=== PATIENT | male | born 1960 | race Caucasian/White ===

== ENCOUNTER 2019-07-20 07:27 | Outpatient (CLI) | payer OTHER, SELFPAY ==
--- NOTE | ~2019-07-20 | US_ITS ---
US right upper quadrant DATE: 07/20/2019 08:07 INDICATION: Abdominal pain TECHNIQUE: Real-time imaging of liver, pancreas, gallbladder areas COMPARISON: 01/29/2018 CT abdomen pelvis FINDINGS: No hepatic or pancreatic space-occupying mass lesion is evident. Fatty infiltration of the liver is suggested. Normal hepatic portal venous flow direction. No gallstones or gallbladder wall thickening or abnormal pericholecystic fluid collection. Negative s onographic Mart's sign. The common bile duct measures 5.2 mm diameter, within normal range. IMPRESSION: Hepatic steatosis is suggested Negative gallbladder Reviewed, dictated and finalized at [facility]. Reviewed, dictated and finalized at location A.
== END 2019-07-20 07:28 | disposition home or self-care (01) ==
PROVIDERS: PCP Emergency Medicine; Visit Provider Emergency Medicine
DX: R10.9 Unspecified abdominal pain (principal)
CPT/HCPCS: 76705

== ENCOUNTER 2019-10-09 08:01 | Outpatient (CLI) | payer OTHER, SELFPAY ==
--- NOTE | ~2019-10-09 | NM_ITS ---
EXAMINATION: NM hepatobiliary w pharm DATE: 10/09/2019 11:49 INDICATION: Abdominal pain COMPARISON: None. TECHNIQUE: 4.7 mCi Tc-99m mebrofenin (Choletec) was administered intravenously. Scintigraphic images of the abdomen were obtained for one hour. 3 mcg sincalide (Kinevac) was administered by slow intrav enous infusion, and imaging was continued for 30 minutes. Gallbladder ejection fraction was calculate d by the technologist. FINDINGS: There is normal clearance of radiotracer from the blood pool. There is homogeneous tracer uptake by t he liver. Activity progresses to the gallbladder and bowel. The gallbladder ejection fraction (GBEF) is 74% (normal 10-90%, but most patient with gallbladder dysfunction have GBEF < 35% which does over lap with the normal range). IMPRESSION: 1. Normal hepatobiliary scan. Reviewed, dictated and finalized at location A.
== END 2019-10-09 08:02 | disposition home or self-care (01) ==
PROVIDERS: PCP Emergency Medicine; Visit Provider Emergency Medicine
DX: R10.9 Unspecified abdominal pain (principal)
CPT/HCPCS: 78227; A9537; J2805

== ENCOUNTER 2020-02-25 12:42 | Outpatient (CLI) | payer OTHER, SELFPAY ==
--- NOTE | ~2020-02-25 | CT_ITS ---
EXAMINATION: CT lung screening DATE: 02/25/2020 13:04 INDICATION: Personal history of nicotine dependence, current smoker with 30 pack year history TECHNIQUE: Computed tomography (CT) of the chest was performed without intravenous contrast. The dose -length product (DLP) was 187.02 mGy-cm. Automated exposure control and iterative reconstruction tech Post[employer] were employed. COMPARISON: 12/06/2018 FINDINGS: There is mild emphysema. Calcified pulmonary nodules and calcified left hilar lymph nodes a re consistent with old granulomatous disease. No suspicious pulmonary nodules are identified. There i s no pleural effusion or pneumothorax. No pathologically enlarged thoracic lymph nodes are identified . The heart size is normal. Mild bilateral gynecomastia is noted. Punctate calcifications in otherwis e normal appearing liver and spleen likely represent healed granulomatous disease. Nonobstructing sto sonia of the left kidney upper pole measure up to 9 mm. There is moderate thoracic spondylosis. IMPRESSION: 1. Lung-RADS category 2: Benign appearance or behavior. Continue annual screening with noncontrast lo w-dose chest CT in 12 months. Reviewed, dictated and finalized at location A. LE SEWER MACHINE IMPRESSION: 1. Lung-RADS category 2: Benign appearance or behavior. Continue annual screeni ng with noncontrast low-dose chest CT in 12 months.
== END 2020-02-25 12:43 | disposition home or self-care (01) ==
LOC: ANHIMG 12:49
PROVIDERS: PCP Emergency Medicine; Visit Provider Emergency Medicine
DX: Z12.2 Encounter for screening for malignant neoplasm of respiratory organs (principal); Z87.891 Personal history of nicotine dependence
CPT/HCPCS: G0297

== ENCOUNTER → 2020-06-09 10:17 | Outpatient (CLI) | payer OTHER, SELFPAY ==
--- NOTE | ~2020-06-09 | XR_ITS ---
EXAMINATION: XR lumbar spine 2-3V, XR sacroiliac joints min 3V EXAM DATE: 06/09/2020 10:40 INDICATION: Ankylosing spondylitis in spine . Middle Lower Back Pain Radiates To Right Side Worsenin g For 1 Week. Hx Of Arthritis And Crohn's Disease. Fx's Of Lower Vertebrae And Herniated Disc's. No S urg. No Known Injury. TECHNIQUE: Lumber spine frontal, lateral, lateral L5-S1 projections for interpretation. Frontal, leo ateral oblique projections of the sacroiliac joints. Comparison is made to prior examination from 05/04 (lumbar spine. FINDINGS: Mild lumbar levoscoliosis. Mild to moderate disc disease L1-L4, mild at L4-5 and L5-S1. Sma ll to moderate size endplate osteophytes. Mild to moderate lumbar facet arthropathy. Sacrum, sacroili ac joints, sacral arcuate lines are intact. Sacroiliac joints are intact, fused. Paraspinal soft tiss ue is unremarkable. IMPRESSION: 1. Mild to moderate lumbar spondylosis. 2. Unremarkable sacroiliac joints. Reviewed, dictated and finalized at location A. IMPRESSION: 1. Mild to moderate lumbar spondylosis. 2. Unremarkable sacroiliac joints.
== END ==
PROVIDERS: PCP Emergency Medicine; Visit Provider Emergency Medicine
DX: M45.6 Ankylosing spondylitis lumbar region (principal); M47.817 Spondylosis without myelopathy or radiculopathy, lumbosacral region
CPT/HCPCS: 72100; 72202

== ENCOUNTER 2020-08-31 00:16 | Emergency (ER) | payer OTHER, SELFPAY ==
--- NOTE | ~2020-08-31 | XR_ITS ---
EXAMINATION: XR abdomen/kub 1V INDICATION: Left flank pain TECHNIQUE: Supine views of the abdomen were obtained on 2 radiographs. COMPARISON: CT from today FINDINGS: There are stones measuring 3 mm and 2 mm projecting in the proximal left ureter between the left L3 and L4 transverse processes. A 6 mm stone is noted in the left kidney upper pole. Punctate s tones of the right kidney measure up to 2 mm. The bowel gas pattern is normal. There is mild osteoart hritis of the hips. IMPRESSION: 1. Two stones of the left proximal ureter. 2. Bilateral nephrolithiasis. Reviewed, dictated and finalized at location A.
--- NOTE | ~2020-08-31 | CT_ITS ---
EXAMINATION: CT abdomen pelvis wo con DATE: 08/31/2020 01:12 INDICATION: Left flank pain TECHNIQUE: Computed tomography (CT) of the abdomen and pelvis was performed without intravenous contr ast. The dose-length product (DLP) was 324.12 mGy-cm. Automated exposure control and iterative recons truction technique were employed. COMPARISON: 01/29/2018 FINDINGS: Minimal dependent atelectasis is present in the lung bases. The heart size is normal. Punct ate calcifications in otherwise normal appearing liver and spleen likely represent healed granulomato us disease. The pancreas, gallbladder, and adrenal glands are normal. Stones measuring 5 mm and 3 mm are present in the proximal left ureter which cause mild hydroureteronephrosis. There is a 6 mm nonob structing stone of the left kidney upper pole. Punctate stones are noted in the right kidney upper po le and left kidney lower pole. There is a 2 mm nonobstructing stone of the right mid kidney. Cysts of the kidneys measure up to 2 cm on the left. No pathologically enlarged abdominal or pelvic lymph nod es are identified. There is no free intraperitoneal gas or evidence of bowel obstruction. The appendi x is normal. Colonic diverticulosis is present without evidence of diverticulitis. Bilateral sacroili itis is again noted. There is moderate lumbar spondylosis. IMPRESSION: 1. Two stones of the proximal left ureter causing mild hydroureteronephrosis. 2. Bilateral nonobstructing nephrolithiasis. Reviewed, dictated and finalized at location A.
[2020-08-31 00:20] VITALS: BP 173/103; PULSE 70; RESP 16; TEMP 36.5; O2SAT 100
[2020-08-31] MEDS: KETOROLAC 30 MG/ML VIAL (*BKC) IV PUSH (00:45)
[2020-08-31] MEDS: SODIUM CHLORIDE 0.9% IV 1,000 ML 999 ML IV CONT (00:45)
[2020-08-31] MEDS: ONDANSETRON INJ 4 MG/2 ML VIAL IV PUSH (00:46)
--- NOTE | 2020-08-31 00:54 | PC.NURSE ---
Pt unable to void at this time. Refusing straight catheter at this time. Urinal at bedside.
[2020-08-31 01:01] VITALS: BP 147/91
--- NOTE | 2020-08-31 01:01 | PC.NURSE ---
Pt to imaging at this time.
[2020-08-31 01:44] LABS: Add Urine Microscopic? YES; Appearance Urine Cloudy (Clear); Bilirubin Urine Negative (Negative); Blood Urine 3+ (Negative); Calcium Oxalate Crystals Urine Many /hpf; Color Urine Red (Yellow); Glucose Urine UA Negative (Negative); Ketones Urine Negative (Negative); Leukocyte Esterase Ur Negative LEU/UL (Negative); Mucus Urine Heavy /lpf; Nitrate Urine Negative (Negative); Protein Urine 2+ mg/dL (Negative); RBC Urine >75 /hpf (0-2); Specific Grav Ur 1.009 (1.001-1.035); Urobilinogen Urine Negative mg/dL (<2.0); WBC Urine >75 /hpf
--- NOTE | 2020-08-31 01:59 | ED.ABDPAIN ---
HPI - Abdominal Pain General Chief Complaint: Urogenital-Male Stated Complaint: Left flank pain, hematuria Time Seen by Provider: 08/31/20 00:19 History of Present Illness HPI narrative: Patient is a 60-year-old male who presents ER with sudden onset left-sided abdominal pain. Associated with hematuria and urinary frequency. Has history of kidney stones. Symptoms began around 5 PM. He has sweats as well as nausea and vomiting. No alleviating factors. Related Data Home Medications Medication Instructions Recorded Confirmed alprazolam 0.5 mg PO DAILY 12/17/18 04/21/20 bupropion HCl 150 mg PO QAM 12/17/18 04/21/20 escitalopram oxalate 20 mg PO DAILY 12/17/18 04/21/20 hydrocodone-acetaminophen 1 tablet PO Q4-6H PRN 12/17/18 04/21/20 pregabalin 75 mg PO BID 12/17/18 04/21/20 amlodipine 10 mg PO DAILY 12/24/19 04/21/20 pantoprazole 20 mg tablet,delayed 20 mg PO QAM 02/18/20 04/21/20 release Allergies Allergy/AdvReac Type Severity Reaction Status Date / Time Sulfa (Sulfonamide Allergy Unknown Rash Verified 04/21/20 11:54 Antibiotics) Review of Systems Review of Systems: All systems reviewed & are unremarkable except as noted in HPI and below Constitutional: Constitutional: Denies chills, Denies fever(s) and Denies weakness Gastrointestinal: Gastrointestinal: Reports abdominal pain, Denies diarrhea, Reports nausea and Reports vomiting Genitourinary: Genitourinary: Reports hematuria, Denies dysuria and Reports urinary frequency Musculoskeletal: Musculoskeletal: Denies back pain and Denies muscle cramps PMF Past Medical History Medical History (Updated 08/31/20 @ 02:53 by Yonas Ramey MD) Crohn's disease Emphysema lung GERD (gastroesophageal reflux disease) Kidney stones Stomach ulcer Surgical History Surgical History H/O foot surgery H/O thumb surgery History of ankle surgery History of colonoscopy Family History Family History Sibling Cerebrovascular accident Family history of malignant neoplasm of breast Mother Family history of malignant neoplasm Father Carcinoma of colon Social History Social History Smoking status: Heavy tobacco smoker Alcohol intake: never Exam Narrative: Exam Narrative: GENERAL: Uncomfortable-appearing, well-nourished, and in mild distress. HEAD: Normocephalic, atraumatic. ENT: Mucous membranes moist. CHEST: Clear to auscultation. No respiratory distress. HEART: Regular rate and rhythm. Normal peripheral pulses. ABDOMEN: Soft, nontender, nondistended. EXTREMITIES: Normal range of motion. No edema. SKIN: Warm, dry, no rash. NEURO: Alert and oriented x3. PSYCH: Normal mood and affect. Course Course Emergency Course: Patient informed results. Discussed case with urologist on-call Dr. Allen. Recommends close follow-up with symptomatic treatment at home as well as ciprofloxacin given white blood cells in the urine. Make sure urinalysis is being cultured. Patient no longer takes methotrexate so he is not immunocompromise. Vital Signs Vital signs: Vital Signs Temperature 97.7 F 08/31/20 00:20 Pulse Rate 70 08/31/20 00:20 Respiratory Rate 16 08/31/20 00:20 Blood Pressure 173/103 H 08/31/20 00:20 Pulse Oximetry 100 08/31/20 00:20 Temperature 97.7 F 08/31/20 00:20 Pulse Rate 62 08/31/20 02:31 Respiratory Rate 23 H 08/31/20 02:31 Blood Pressure 125/74 08/31/20 02:31 Pulse Oximetry 95 08/31/20 02:31 MDM - Abdominal Pain Lab Data Result diagrams: 08/31/20 00:51 08/31/20 00:51 Labs: Lab Results 08/31/20 08/31/20 08/31/20 Range/Units 00:51 00:51 01:28 WBC 9.6 (4.5-10.0) K/mm3 RBC 5.50 (4.6-6.20) M/mm3 Hgb 15.7 (14.0-18.0) g/dL Hct 47.8 (42.0-52.0) % MCV 86.9 (80-100) fl MCH 28.5 (26-34)
[2020-08-31 02:23] VITALS: BP 125/69; PULSE 61; RESP 17; O2SAT 97
[2020-08-31 02:31] VITALS: BP 125/74; PULSE 62; RESP 23; O2SAT 95
[2020-08-31 02:33] LABS: Basophils Percent Auto 0.3 % (0.2-1.2); Eosinophils Absolute Auto 0.2 K/mm3 (0-0.3); Eosinophils Percent Auto 1.6 % (0-4.4); Hematocrit 47.8 % (42.0-52.0); Hemoglobin 15.7 g/dL (14.0-18.0); Immature Granulocyte Absolute 0.04 K/mm3 (0.00-0.031); Immature Granulocyte Percent A 0.4 % (0-0.5); Lymphocytes Percent Auto 28.2 % (18.3-44.2); Mean Corpuscular HGB Conc 32.8 g/dl (32-36); Mean Corpuscular Hemoglobin 28.5 pg (26-34); Mean Corpuscular Volume 86.9 fl (80-100); Mean Platelet Volume 9.6 fl (7.4-10.4); Monocytes Absolute Auto 0.9 K/mm3 (0.1-0.6); Monocytes Percent Auto 8.9 % (2.6-8.5); Neutrophils Absolute Auto 5.8 K/mm3 (1.3-6.7); Neutrophils Percent Auto 60.6 % (45.5-73.1); Platelet Count Result 209 k/mm3 (150-375); Red Cell Distribution Width 14.5 % (11.5-14.5); White Blood Count 9.6 K/mm3 (4.5-10.0)
[2020-08-31 02:38] LABS: Anion Gap 8 mmol/L (8-16); Blood Urea Nitrogen 17 mg/dL (9-20); Calcium 9.8 mg/dL (8.4-10.2); Carbon Dioxide 26 mmol/L (22-30); Chloride 108 mmol/L (98-107); Estimated CRCL calculation 57 ml/min; Estimated Glomerular Filt Rate 52; Glucose 99 mg/dL (75-110); Sodium 142 mmol/L (137-145)
[2020-08-31] MEDS: CIPROFLOXACIN 500 MG TAB PO (03:05)
[2020-08-31] MEDS: TAMSULOSIN HCL 0.4 MG CAPSULE PO (03:05)
[2020-08-31 03:11] VITALS: BP 121/74; PULSE 67; RESP 13; TEMP 36.6; O2SAT 99
== END 2020-08-31 03:14 | disposition home or self-care (01) ==
PROVIDERS: Emergency Provider Emergency Medicine; PCP Emergency Medicine
DX: N20.1 Calculus of ureter (principal); R31.9 Hematuria, unspecified; K50.90 Crohn's disease, unspecified, without complications; J43.9 Emphysema, unspecified; F17.200 Nicotine dependence, unspecified, uncomplicated
CPT/HCPCS: 36415; 74018; 74176; 80048; 81001; 85025; 87086; 87088; 96361; 96374; 96375; 99284; A9270; J1885; J2405; J7030

== ENCOUNTER 2020-09-10 14:57 | Outpatient (CLI) | payer OTHER, SELFPAY ==
--- NOTE | ~2020-09-10 | XR_ITS ---
EXAMINATION: XR abdomen/kub 1V DATE: 09/10/2020 15:13 INDICATION: Bilateral ureteral stone. Left flank pain. TECHNIQUE: A supine view of the abdomen on 2 radiographs was obtained. COMPARISON: Abdomen radiographs 08/31/2020, CT abdomen and pelvis 08/31/2020 FINDINGS: There are no dilated loops of bowel. The kidneys are obscured by bowel. There are two 3 mm stones in distal left ureter. There is a 2 mm vascular calcification in left pelvis. IMPRESSION: 1. Two 3 mm stones in distal left ureter. Reviewed, dictated and finalized at location A.
== END 2020-09-10 14:58 | disposition home or self-care (01) ==
LOC: ANHIMG 15:02
PROVIDERS: PCP Emergency Medicine; Visit Provider Urology
DX: N20.1 Calculus of ureter (principal)
CPT/HCPCS: 74018

== ENCOUNTER 2020-09-17 01:16 | Day surgery (SDC) | payer OTHER, SELFPAY ==
--- NOTE | 2020-09-14 07:55 | PM.HPGS ---
History of Present Illness History of Present Illness Consent: Risks, benefits, and alternatives have been discussed and questions answered. Patient agrees to proceed with procedure. Chief complaint: Left ureteral stone Narrative: Venu Hobson is a 60 year old male with a history of urolithiasis in the past. He recently presented with hematuria and flank pain. Imaging reveals 2 stones in the distal left ureter. After failing to pass the spontaneously he now presents for cystoscopy with ureteroscopy and stone extraction, is aware of possible need for a stent placement. He is aware of risk of ureteral injury and recurrent stone. Review of Systems Cardiovascular: Cardiovascular: Denies chest pain, Denies lightheadedness, Denies palpitations and Denies dyspnea Respiratory: Respiratory: Denies dyspnea Gastrointestinal: Gastrointestinal: Denies diarrhea, Denies nausea and Denies vomiting Genitourinary: Genitourinary: Denies hematuria and Denies dysuria Endocrine: Endocrine: Denies palpitations PMF Past Medical History Medical History (Updated 09/14/20 @ 07:57 by Danielito Mary MD) Crohn's disease Emphysema lung GERD (gastroesophageal reflux disease) Kidney stones Stomach ulcer Surgical History Surgical History H/O foot surgery H/O thumb surgery History of ankle surgery History of colonoscopy Family History Family History Sibling Cerebrovascular accident Family history of malignant neoplasm of breast Mother Family history of malignant neoplasm Father Carcinoma of colon Social History Social History Smoking status: Heavy tobacco smoker Alcohol intake: never Meds Home Medications and Allergies Home Medications Medication Instructions Recorded Confirmed Type alprazolam 0.5 mg PO DAILY 12/17/18 04/21/20 History bupropion HCl 150 mg PO QAM 12/17/18 04/21/20 History escitalopram oxalate 20 mg PO DAILY 12/17/18 04/21/20 History hydrocodone-acetaminophen 1 tablet PO Q4-6H PRN 12/17/18 04/21/20 History pregabalin 75 mg PO BID 12/17/18 04/21/20 History amlodipine 10 mg PO DAILY 12/24/19 04/21/20 History folic acid 1 mg tablet 1 mg PO DAILY #30 tablet 02/18/20 04/21/20 Rx methotrexate sodium 2.5 mg tablet 12.5 mg PO WEEKLY #20 tablet 02/18/20 04/21/20 Rx pantoprazole 20 mg tablet,delayed 20 mg PO QAM 02/18/20 04/21/20 History release ciprofloxacin HCl 500 mg PO Q12H #14 tablet 08/31/20 Rx hydrocodone-acetaminophen 1 tablet PO Q6H PRN #20 tablet 08/31/20 Rx promethazine 25 mg PO Q6H PRN #10 tablet 08/31/20 Rx tamsulosin 0.4 mg PO DAILY #7 cap 08/31/20 Rx Allergies Allergy/AdvReac Type Severity Reaction Status Date / Time Sulfa (Sulfonamide Allergy Unknown Rash Verified 04/21/20 11:54 Antibiotics) Exam Const: General: no acute distress Resp: Effort & Inspection: normal respiratory effort GI: Inspection: non-distended GI Palp: No abdominal tenderness and No Guarding due to palpation present (GI) Auscultation: normal bowel sounds Assessment and Plan Assessment and plan (1) Left ureteral calculus: Code(s): N20.1 - Calculus of ureter Status: Acute Assessment and Plan: cystoscopy, left ureteroscopy with stone extraction and possible stent placement
[2020-09-15 11:57] VITALS: BMI 30.9
--- NOTE | ~2020-09-17 | XR_ITS ---
EXAMINATION: XR abdomen/kub 1V INDICATION: Left flank pain TECHNIQUE: Supine views of the abdomen were obtained on 2 radiographs. COMPARISON: 09/10/2020 FINDINGS: The previously described 3 mm stones of the distal left ureter are no longer identified con sistent with interval treatment or passage. Vascular calcification is noted in the left pelvis. There is a 6 mm stone of the left kidney upper pole. A 3 mm stone is noted in the right kidney. The bowel gas pattern is normal. The visualized lung bases are clear. There is moderate bilateral hip osteoarth ritis. IMPRESSION: 1. Previously described left distal ureteral stones no longer identified. 2. Bilateral nephrolithiasis. Reviewed, dictated and finalized at location B.
--- NOTE | 2020-09-17 06:28 | WPDHPUPDATE1 ---
History and Physical Update Update Date/Time: 09/17/20 06:28 History and Physical has been reviewed, including an updated exam of the patient. There are NO changes in the patient's condition. Risks, benefits, and alternatives have been discussed and questions answered. Patient agrees to proceed with procedure.
[2020-09-17 11:35] VITALS: BP 125/69; PULSE 51; RESP 20; TEMP 36.8; O2SAT 99
== END 2020-09-17 12:03 | disposition home or self-care (01) ==
PROVIDERS: PCP Emergency Medicine; Visit Provider Urology
PROC: (CPT 52352; principal; 2020-09-17 12:45)
DX: N20.1 Calculus of ureter (principal); Z53.8 Procedure and treatment not carried out for other reasons
CPT/HCPCS: 74018; 99212; A9270; G0463

== ENCOUNTER → 2020-10-08 08:22 | Outpatient (CLI) | payer OTHER, SELFPAY ==
--- NOTE | ~2020-10-08 | XR_ITS ---
EXAMINATION:XR cervical spine min 6V DATE: 10/08/2020 09:01 INDICATION: Neck pain TECHNIQUE: AP, lateral in neutral, flexion, extension, bilateral oblique, lateral swimmers and odonto id views of the cervical spine are provided. COMPARISON: None FINDINGS: Alignment is normal. There is no laxity with flexion or extension. The odontoid is intact. No fracture is identified. The vertebral body heights are maintained. There is mild loss of intervert ebral disc space height at C4-5, C5-6, and C6-7. Small degenerative osteophytes project from the ante rior endplates of multiple vertebral bodies. There is mild neuroforaminal stenosis on the left at C7- T1 and on the right and C5-6 and C7-T1. There is moderate multilevel facet and uncovertebral joint os teoarthritis. Prevertebral soft tissues are normal. IMPRESSION: 1. Mild to moderate cervical spondylosis without acute findings. Reviewed, dictated and finalized at location B.
--- NOTE | ~2020-10-08 | XR_ITS ---
EXAMINATION: XR thoracic spine 2V DATE: 10/08/2020 09:01 INDICATION: Thoracic back pain TECHNIQUE: AP, lateral and lateral swimmer's views of the thoracic spine were obtained. COMPARISON: None. FINDINGS: There is no fracture, dislocation, or subluxation. The vertebral body heights are normal. T here is mild loss of intervertebral disc space height in the mid and upper thoracic spine. Scattered calcified nodules of the lungs are consistent with old granulomatous disease. IMPRESSION: 1. Mild thoracic spondylosis without acute findings. Reviewed, dictated and finalized at location B.
--- NOTE | ~2020-10-08 | US_ITS ---
EXAMINATION: US renal BI DATE: 10/08/2020 08:39 INDICATION: Hydronephrosis, history of kidney stones TECHNIQUE: Multiple grayscale and Doppler ultrasound images of the kidneys were obtained. COMPARISON: CT, 08/31/2020 FINDINGS: The right kidney measures 11.1 x 6.0 x 5.7 cm. There is a 1.7 cm cyst in the upper pole of the right kidney. The left kidney measures 12.1 x 5.7 x 5.3 cm and contains cysts measuring up to 3.2 cm. The kidneys demonstrate normal parenchymal echogenicity. Known bilateral nephrolithiasis is not demonstrated. There is no hydronephrosis. The bladder is normal. IMPRESSION: 1. Normal kidneys without hydronephrosis. Reviewed, dictated and finalized at location B.
== END ==
PROVIDERS: PCP Emergency Medicine; Visit Provider Emergency Medicine
DX: N13.30 Unspecified hydronephrosis (principal); M47.894 Other spondylosis, thoracic region; M47.892 Other spondylosis, cervical region
CPT/HCPCS: 72052; 72070; 76775

== ENCOUNTER 2020-12-25 22:53 | Emergency (ER) | payer OTHER, SELFPAY ==
--- NOTE | ~2020-12-25 | CT_ITS ---
EXAMINATION: CT abdomen pelvis wo con DATE: 12/25/2020 23:42 INDICATION: Kidney stones TECHNIQUE: Computed tomography (CT) of the abdomen and pelvis was performed without intravenous contr ast. The dose-length product was 336.34 mGy-cm. Automated exposure control and iterative reconstructi on technique were employed. COMPARISON: CT dated 08/31/2020 FINDINGS: Lung bases are unremarkable. Heart size is normal. No significant pleural or pericardial ef fusion. No significant vascular abnormality. No lymphadenopathy. There are calcified granulomas of th e liver and spleen. The pancreas and adrenal glands are unremarkable. There are multiple bilateral re nal stones. No left ureteral stones or hydronephrosis. There is a proximal right ureteral stone measu ring 3 mm with mild hydronephrosis and perinephric edema. Colonic diverticulosis without evidence for acute diverticulitis. Nonobstructive bowel pattern. Gallbladder is present. No free air or free flui d. No abnormal pelvic masses or fluid collections. No evidence for hernia. Mild lumbar spondylosis. T here are degenerative changes of the sacroiliac joints and hips. IMPRESSION: 1. Proximal right ureteral stone measuring 3 mm at the L3-4 level with mild hydronephrosis. 2: Nonobstructing bilateral nephrolithiasis. Reviewed, dictated and finalized at location A. IMPRESSION: 1. Proximal right ureteral stone measuring 3 mm at the L3-4 level with mild hyd ronephrosis. 2: Nonobstructing bilateral nephrolithiasis.
[2020-12-25 22:56] VITALS: BP 167/98; PULSE 71; RESP 17; TEMP 36.2; O2SAT 100
--- NOTE | 2020-12-25 23:35 | ED.ABDPAIN ---
HPI - Abdominal Pain General Chief Complaint: Abdominal Pain <Joe Herrera MD - Last Filed: 12/26/20 12:38> Stated Complaint: R abdominal pain <Joe Herrera MD - Last Filed: 12/26/20 12:38> Time Seen by Provider: 12/25/20 23:09 <Joe Herrera MD - Last Filed: 12/26/20 12:38> Source: patient <Joe Herrera MD - Last Filed: 12/26/20 12:38> Mode of arrival: ambulatory <Joe Herrera MD - Last Filed: 12/26/20 12:38> Limitations: no limitations <Joe Herrera MD - Last Filed: 12/26/20 12:38> History of Present Illness HPI narrative: 60-year-old male History of kidney stones Here for flank pain Patient notes he has been having some right-sided back pain for several days but at first just thought it was his SI joint, which is scheduled for an injection, flaring up However the pain worsened yesterday and was associated with gross hematuria has now started radiating into the lower abdomen on the right side Nothing is worsened his pain, he takes Solano periodically for his back and that has not helped either He has a follow-up appointment already with Dr. Tyra kunz on Monday <Joe Herrera MD - Last Filed: 12/26/20 12:38> Related Data Home Medications: Home Medications Medication Instructions Recorded Confirmed alprazolam 0.5 mg PO DAILY 12/17/18 09/15/20 bupropion HCl 150 mg PO QAM 12/17/18 09/15/20 escitalopram oxalate 20 mg PO DAILY 12/17/18 09/15/20 hydrocodone-acetaminophen 1 tablet PO Q4-6H PRN 12/17/18 09/15/20 amlodipine 10 mg PO DAILY 12/24/19 09/15/20 pantoprazole 20 mg tablet,delayed 20 mg PO QAM 02/18/20 09/15/20 release <Joe Herrera MD - Last Filed: 12/26/20 12:38> Allergies/Adverse Reactions: Allergies Allergy/AdvReac Type Severity Reaction Status Date / Time Sulfa (Sulfonamide Allergy Unknown Rash Verified 04/21/20 11:54 Antibiotics) <Joe Herrera MD - Last Filed: 12/26/20 12:38> Review of Systems Review of Systems: All systems reviewed & are unremarkable except as noted in HPI and below <Joe Herrera MD - Last Filed: 12/26/20 12:38> Constitutional: Constitutional: Reports no additional constitutional complaints, Denies chills, Denies fever(s) and Denies headache(s) <Joe Herrera MD - Last Filed: 12/26/20 12:38> Eyes: Eyes: Reports no additional eye complaints and Denies change in vision <Joe Herrera MD - Last Filed: 12/26/20 12:38> ENT: Denies headache(s) and Denies sore throat <Joe Herrera MD - Last Filed: 12/26/20 12:38> Cardiovascular: Cardiovascular: Denies chest pain and Denies dyspnea <Joe Herrera MD - Last Filed: 12/26/20 12:38> Respiratory: Respiratory: Denies cough and Denies dyspnea <Joe Herrera MD - Last Filed: 12/26/20 12:38> Gastrointestinal: Gastrointestinal: Denies abdominal pain, Denies diarrhea, Reports nausea and Reports vomiting <Joe Herrera MD - Last Filed: 12/26/20 12:38> Genitourinary: Genitourinary: Reports as per HPI, Reports hematuria, Denies dysuria and Reports urinary frequency <Joe Herrera MD - Last Filed: 12/26/20 12:38> Musculoskeletal: Musculoskeletal: Reports back pain, Denies deformity, Denies arthralgias, Denies joint swelling and Denies numbness <Joe Herrera MD - Last Filed: 12/26/20 12:38> Integumentary/Breasts: Skin/Breast: Denies rash and Denies wounds <Joe Herrera MD - Last Filed: 12/26/20 12:38> Neurologic: Denies headache(s), Denies focal weakness and Denies numbness <Joe Herrera MD - Last Filed: 12/26/20 12:38> Psychiatric: Psychiatric: Reports no additional psychiatric complaints <Joe Herrera MD - Last Filed: 12/26/20 12:38> Endocrine: Endocrine: Reports no additional endocrine complaints <Joe Herrera MD - Last Filed: 12/26/20 12:38> Hematologic/Lymphatic: Hematologic/Lymphatic: Reports no additional hematologic/lymphatic complaints <Joe Herrera MD - Last Filed: 12/26/20 12:38> Allergic/Immunologic: Allergic/Im
[2020-12-26] MEDS: PROCHLORPERAZINE EDISYLATE 10 MG/2 ML VIAL IV PUSH (00:08)
[2020-12-26] MEDS: KETOROLAC 30 MG/ML VIAL (*BKC) IV PUSH (00:10)
[2020-12-26 00:13] VITALS: BP 145/87; PULSE 57; RESP 18; O2SAT 96
[2020-12-26] MEDS: TAMSULOSIN HCL 0.4 MG CAPSULE PO (00:13)
[2020-12-26 00:17] LABS: Add Urine Microscopic? YES; Appearance Urine Cloudy (Clear); Bilirubin Urine Negative (Negative); Blood Urine 3+ (Negative); Color Urine Yellow (Yellow); Glucose Urine UA Negative (Negative); Ketones Urine Negative (Negative); Leukocyte Esterase Ur Negative LEU/UL (Negative); Mucus Urine Rare /lpf; Nitrate Urine Negative (Negative); Protein Urine 1+ mg/dL (Negative); RBC Urine >75 /hpf (0-2); Specific Grav Ur 1.018 (1.001-1.035); Squamous Epithelial Cell Urine Rare /hpf (Few); Urobilinogen Urine Negative mg/dL (<2.0)
[2020-12-26 00:46] LABS: Basophils Percent Auto 0.4 % (0.2-1.2); Eosinophils Absolute Auto 0.1 K/mm3 (0-0.3); Eosinophils Percent Auto 1.3 % (0-4.4); Hematocrit 44.8 % (42.0-52.0); Hemoglobin 14.6 g/dL (14.0-18.0); Immature Granulocyte Absolute 0.04 K/mm3 (0.00-0.031); Immature Granulocyte Percent A 0.4 % (0-0.5); Lymphocytes Absolute Auto 1.28 K/mm3 (0.9-3.2); Lymphocytes Percent Auto 12.5 % (18.3-44.2); Mean Corpuscular HGB Conc 32.6 g/dl (32-36); Mean Corpuscular Hemoglobin 28.9 pg (26-34); Mean Corpuscular Volume 88.5 fl (80-100); Mean Platelet Volume 9.3 fl (7.4-10.4); Monocytes Absolute Auto 0.8 K/mm3 (0.1-0.6); Monocytes Percent Auto 7.5 % (2.6-8.5); Neutrophils Percent Auto 77.9 % (45.5-73.1); Platelet Count Result 167 k/mm3 (150-375); Red Blood Count 5.06 M/mm3 (4.6-6.20); Red Cell Distribution Width 14.2 % (11.5-14.5); White Blood Count 10.3 K/mm3 (4.5-10.0)
[2020-12-26 00:54] LABS: Anion Gap 7 mmol/L (8-16); Blood Urea Nitrogen 17 mg/dL (9-20); Calcium 9.9 mg/dL (8.4-10.2); Carbon Dioxide 27 mmol/L (22-30); Chloride 106 mmol/L (98-107); Estimated Glomerular Filt Rate > 60; Glucose 97 mg/dL (65-110); Potassium 4.1 mmol/L (3.4-5.0); Sodium 140 mmol/L (137-145)
[2020-12-26 02:06] VITALS: BP 150/87; PULSE 58; RESP 16; O2SAT 100
== END 2020-12-26 02:08 | disposition home or self-care (01) ==
PROVIDERS: Emergency Provider Emergency Medicine; PCP Emergency Medicine
DX: N13.2 Hydronephrosis with renal and ureteral calculous obstruction (principal); K50.90 Crohn's disease, unspecified, without complications; J43.9 Emphysema, unspecified; K21.9 Gastro-esophageal reflux disease without esophagitis; Z87.442 Personal history of urinary calculi; F17.210 Nicotine dependence, cigarettes, uncomplicated
CPT/HCPCS: 36415; 74176; 80048; 81001; 85025; 87077; 87086; 87186; 96374; 96375; 99284; A9270; J0780; J1885

== ENCOUNTER 2021-01-04 11:24 | Outpatient (CLI) | payer OTHER, SELFPAY ==
--- NOTE | 2021-01-04 | ECG_ITS ---
Measurements Intervals [place] Rate: 62 P: 74 [place]: 149 QRS: 81 QRSD: 90 T: 47 QT: 418 QTc: 425 Interpretive Statements SINUS RHYTHM POSSIBLE LEFT ATRIAL ENLARGEMENT BORDERLINE T WAVE ABNORMALITY- ANT/INF LEADS BORDERLINE ECG Electronically Signed On 01-04-2021 12:44:03 MATERIALS ENGINEER by Osvaldo Reyes D.O.
--- NOTE | ~2021-01-04 | XR_ITS ---
XR chest 2V 01/04/2021 11:47 Indication: Left-sided chest pain Procedure: 2 view chest Comparison: 01/29/2018 Findings: Heart size normal. No focal air space disease, pulmonary edema, pleural effusion or suspect ed pneumothorax. There are calcified granulomas of the left lung and left hilum. Impression: 1: No acute cardiopulmonary disease. Reviewed, dictated and finalized at location A. DESTRUCTIVE TESTER Impression: 1: No acute cardiopulmonary disease.
[2021-01-04 12:33] LABS: D Dimer 0.27 ug/mL (<0.48)
== END 2021-01-04 11:25 | disposition home or self-care (01) ==
PROVIDERS: PCP Emergency Medicine; Visit Provider Emergency Medicine
DX: R94.31 Abnormal electrocardiogram [ECG] [EKG] (principal)
CPT/HCPCS: 36415; 71046; 85380; 93005

== ENCOUNTER 2021-02-09 14:10 | Outpatient (CLI) | payer OTHER, SELFPAY ==
--- NOTE | ~2021-02-09 | CT_ITS ---
EXAMINATION: CT abdomen pelvis wo con DATE: 02/09/2021 14:37 INDICATION: Right ureteral stone. Flank pain. TECHNIQUE: Computed tomography (CT) of the abdomen and pelvis was performed without intravenous contr ast. The dose-length product was 314.94 mGy-cm. Automated exposure control and iterative reconstructi on technique were employed. COMPARISON: CT dated 12/25/2020. FINDINGS: Lung bases are unremarkable. No significant pleural or pericardial effusion. Heart size nor mal. There are calcified granulomas of the liver and spleen. The pancreas, adrenal glands are unremarkable . There are nonobstructing bilateral renal stones. Interval passage of right ureteral stone since suzan or examination. Bladder is decompressed. Colonic diverticulosis without evidence for acute diverticul itis. Normal appendix. No abnormal pelvic masses or fluid collections. There are degenerative changes symmetrically in the sacroiliac joints. There is mild lumbar spondylosis. There is a 2.2 cm exophyti c left renal cyst. There is an additional left renal cyst. There is a small exophytic hypodense lesio n of the right kidney superiorly, most likely benign cysts. Small fat-containing umbilical hernia. IMPRESSION: 1. Nonobstructing bilateral nephrolithiasis with interval passage of right ureteral stone since prior examination. Reviewed, dictated and finalized at location A. EMS CONSULTANT IMPRESSION: 1. Nonobstructing bilateral nephrolithiasis with interval passage of right uret eral stone since prior examination.
== END 2021-02-09 14:11 | disposition home or self-care (01) ==
LOC: ANHIMG 14:15
PROVIDERS: PCP Emergency Medicine; Visit Provider Urology
DX: N20.0 Calculus of kidney (principal)
CPT/HCPCS: 74176

== ENCOUNTER → 2021-04-21 10:10 | Outpatient (CLI) | payer OTHER, SELFPAY ==
--- NOTE | ~2021-04-21 | XR_ITS ---
EXAMINATION: XR chest 2V 04/21/2021 10:51 INDICATION: Smoker. Chest pain. PROCEDURE: 2 view chest COMPARISON: Comparison to multiple prior studies sequentially, with oldest reviewed study dated 08/2008. FINDINGS: The lungs are clear. The cardiomediastinal silhouette is within normal limits. There are no pleural effusions. There is no pneumothorax suspected. There are calcified granulomas in the lef t hilum and left upper thorax. IMPRESSION: 1: NO ACUTE CARDIOPULMONARY DISEASE. Reviewed, dictated and finalized at location B. TED STRING INSTRUMENT REPAIRER
== END ==
PROVIDERS: PCP Emergency Medicine; Visit Provider Emergency Medicine
DX: R07.89 Other chest pain (principal); F17.290 Nicotine dependence, other tobacco product, uncomplicated
CPT/HCPCS: 71046

== ENCOUNTER → 2021-05-26 11:42 | Outpatient (CLI) | payer OTHER, SELFPAY ==
--- NOTE | ~2021-05-26 | CT_ITS ---
EXAMINATION:CT lung screening DATE: 05/26/2021 12:16 INDICATION: Personal history of nicotine dependence. Current smoker with 30 pack year history. TECHNIQUE: Computed tomography (CT) of the chest was performed without intravenous contrast. Automate d exposure control and iterative reconstruction technique were employed. The dose-length product (DLP ) was 207.89 mGy-cm. COMPARISON: Chest CT 02/25/2020 FINDINGS: Calcified bilateral lung nodules and calcified left hilar lymph nodes are consistent with o ld granulomatous disease. There is mild emphysema. There is a 3 mm nodule in right upper lobe. No ple ural effusion. The heart size is normal. No pericardial effusion. There is mild bilateral gynecomasti a. Calcifications in the liver and spleen are consistent with old granulomatous disease. There is a 7 mm stone in left kidney. There are bridging endplate osteophytes at multiple levels in the spine, co nsistent with diffuse idiopathic skeletal hyperostosis (DISH). IMPRESSION: 1. Lung-RADS category 2: Benign appearance or behavior. Continue annual screening with noncontrast lo w-dose chest CT in 12 months. Reviewed, dictated and finalized at location A. IMPRESSION: 1. Lung-RADS category 2: Benign appearance or behavior. Continue annual screeni ng with noncontrast low-dose chest CT in 12 months.
== END ==
PROVIDERS: Visit Provider Emergency Medicine
DX: Z12.2 Encounter for screening for malignant neoplasm of respiratory organs (principal); Z87.891 Personal history of nicotine dependence
CPT/HCPCS: 71271

== ENCOUNTER → 2021-09-22 13:57 | Outpatient (CLI) | payer OTHER, SELFPAY ==
--- NOTE | ~2021-09-22 | XR_ITS ---
EXAMINATION: XR chest 2V Exam Date/Time: 09/22/2021 14:10 CDT HISTORY: PREOP FOR CARPAL TUNNEL HX OF HTN AND SMOKER FOR 40 YRS Comparison: 04/21/2021. RESULT: Lines, tubes, and devices: None. Lungs and pleura: Clear. Cardiomediastinal silhouette: Stable. Other: No acute osseous or upper abdominal finding. IMPRESSION: No acute cardiopulmonary process. Reviewed, dictated and finalized at location K.
== END ==
PROVIDERS: PCP Emergency Medicine; Visit Provider Orthopaedic Surgery
DX: Z01.818 Encounter for other preprocedural examination (principal); G56.01 Carpal tunnel syndrome, right upper limb
CPT/HCPCS: 71046

== ENCOUNTER 2021-09-22 14:24 | Outpatient (CLI) | payer OTHER, SELFPAY ==
--- NOTE | 2021-09-22 | ECG_ITS ---
Measurements Intervals [place] Rate: 51 P: 64 [place]: 150 QRS: 75 QRSD: 109 T: 42 QT: 450 QTc: 416 Interpretive Statements SINUS BRADYCARDIA BORDERLINE T WAVE ABNORMALITY- ANTERIOR LEADS BORDERLINE ECG Electronically Signed On 09-22-2021 15:20:14 CDT by Osvaldo Reyes D.O.
[2021-09-22 14:37] LABS: Hematocrit 44.9 % (42.0-52.0); Hemoglobin 14.4 g/dL (14.0-18.0); Mean Corpuscular HGB Conc 32.1 g/dl (32-36); Mean Corpuscular Volume 87.4 fl (80-100); Mean Platelet Volume 8.9 fl (7.4-10.4); Platelet Count Result 191 k/mm3 (150-375); Red Blood Count 5.14 M/mm3 (4.6-6.20); Red Cell Distribution Width 14.8 % (11.5-14.5); White Blood Count 7.6 K/mm3 (4.5-10.0)
[2021-09-22 14:48] LABS: Alanine Aminotransferase 17 U/L (6-50); Albumin Level 4.4 g/dL (3.5-5.1); Alkaline Phosphatase 50 U/L (38-126); Anion Gap 10 mmol/L (8-16); Aspartate Amino Transferase 25 U/L (17-59); Bilirubin,Total 0.6 mg/dL (0.2-1.3); Blood Urea Nitrogen 15 mg/dL (9-20); Calcium 9.5 mg/dL (8.4-10.2); Carbon Dioxide 25 mmol/L (22-30); Chloride 103 mmol/L (98-107); Estimated Glomerular Filt Rate > 60; Glucose 79 mg/dL (65-110); Potassium 3.8 mmol/L (3.4-5.0); Sodium 138 mmol/L (137-145)
== END 2021-09-22 14:25 | disposition home or self-care (01) ==
LOC: ANHLAB 14:25
PROVIDERS: PCP Emergency Medicine; Visit Provider Orthopaedic Surgery
DX: Z01.818 Encounter for other preprocedural examination (principal); G56.01 Carpal tunnel syndrome, right upper limb; R94.31 Abnormal electrocardiogram [ECG] [EKG]
CPT/HCPCS: 36415; 80053; 85027; 93005

== ENCOUNTER 2021-09-27 08:44 | Outpatient (CLI) | payer OTHER, SELFPAY ==
--- NOTE | ~2021-09-27 | NM_ITS ---
EXAMINATION: NM sheryl stress w perfusion DATE: 09/27/2021 11:45 INDICATION: Chest pain, unspecified. TECHNIQUE: Rest images were obtained following intravenous administration of 10.5 mCi Tc99m tetrofosm in (Myoview). The patient was infused intravenously with Lexiscan (regadenoson). Then, 32.7 mCi Tc99m tetrofosmin (Myoview) was administered intravenously, and stress images were obtained. Data was adrian nstructed into short axis and horizontal and vertical long axis SPECT images. Gated SPECT images were also obtained. COMPARISON: Chest CT 05/26/2021 FINDINGS: There is no definite reversible or fixed perfusion abnormality to suggest ischemia or infar ction. There is no segmental wall motion abnormality. Left ventricular ejection fraction measures > 70%. IMPRESSION: 1. No definite ischemia or infarct. 2. Normal left ventricular ejection fraction measuring >70%. Reviewed, dictated and finalized at location A.
--- NOTE | 2021-09-27 08:51 | EST_ITS ---
Patient Info Name: Venu Hobson Age: 61 years : 1960 Gender: Male Ht: 69 in Wt: 190 lbs BSA: 2.07 m2 HR: 49 bpm BP: 135 / 82 mmHg Heart Rhythm: Sinus Rhythm Exam Date: 09/27/2021 10:01 AM Exam Location: [facility] [place] [facility] Patient Status: Outpatient Admit Date: 09/27/2021 Staff Ordering Physician: Osvaldo Reyes DO Attending Provider: Osvaldo Reyes DO Exercise Technologist: Alyce Hayden CT Exercise Physician: Osvaldo Reyes DO Exam Type: CA stress sheryl w NM Study Info Indications R07.9 - Chest pain, unspecified Z01.810 - Encounter for preprocedural cardiovascular examination A regadenoson stress test was performed. Summary 1. 1. Negative lexiscan stress test for ischemic ST changes by ECG criteria. 2. 2. Stable hemodynamics throughout the test. 3. 3. Nuclear scan to follow and will be reported separately. Please correlate with it. 4. 4. Patient informed of the above results. Protocol: Lexiscan Stress ECG Details Stage: REST Duration (min): 0 min : 51 sec HR (bpm): 49 SBP (mmHg): 135 DBP (mmHg): 82 Stage: REST Duration (min): 6 min : 45 sec HR (bpm): 48 SBP (mmHg): 135 DBP (mmHg): 82 Stage: STAGE 1 Duration (min): 0 min : 59 sec HR (bpm): 55 SBP (mmHg): 125 DBP (mmHg): 80 Stage: RECOVERY Duration (min): 1 min : 0 sec HR (bpm): 77 SBP (mmHg): 125 DBP (mmHg): 80 Stage: RECOVERY Duration (min): 2 min : 0 sec HR (bpm): 77 SBP (mmHg): 125 DBP (mmHg): 80 Stage: RECOVERY Duration (min): 2 min : 53 sec HR (bpm): 71 SBP (mmHg): 143 DBP (mmHg): 82 Rest HR: 48 bpm Peak HR: 80 bpm Rest Sys BP: 135 mmHg Peak Sys BP: 143 mmHg Max Pred HR: 160 bpm % Max Pred HR: 50 % Target HR: 136 bpm Max RPP: 11,440 bpm*mmHg Termination Reason: Completed protocol Cardiac Symptoms: Shortness of breath Total Time: 1 min : 0 sec Rest Velazquez BP: 82 mmHg Peak Velazquez BP: 82 mmHg Total Dose: 0.4 mg Resting ECG Sinus bradycardia, T wave abnormality in anterolat/inf leads- consider ischemia. Stress ECG No ST changes. Arrhythmias None. Report Signatures
== END 2021-09-27 08:45 | disposition home or self-care (01) ==
PROVIDERS: PCP Emergency Medicine; Visit Provider Internal Medicine Cardiovascular Disease
DX: R07.9 Chest pain, unspecified (principal)
CPT/HCPCS: 78452; 93017; A9502; J2785

== ENCOUNTER → 2021-10-29 16:32 | Outpatient (CLI) | payer OTHER, SELFPAY ==
--- NOTE | ~2021-10-29 | MR_ITS ---
EXAMINATION: MR lumbar spine wo con DATE: 10/29/2021 17:25 INDICATION: Low back pain TECHNIQUE: Magnetic resonance imaging (MRI) of the lumbar spine was performed without intravenous con trast. Sequences included sagittal T2-weighted FSE, sagittal T2-weighted FS FSE, sagittal T1-weighted FSE, and axial T2-weighted FSE. COMPARISON: 12/21/2017 FINDINGS: 10 degrees lumbar levoscoliosis. Sagittal alignment is normal. Vertebral body heights are normal. Sma ll Schmorl's node along the left anterior aspect of the inferior endplate of L1. Again seen are scatt ered fibrofatty and fibrovascular degenerative endplate changes. No pathologic marrow replacing proce ss. Moderate disc height loss at L1-L2, L2-L3 and L3-L4 and mild disc height loss at T11-T12 and L4-L 5. The conus medullaris terminates at L2. There is normal signal in the caudal spinal cord. Partially visualized left renal cyst. Paravertebral soft tissues are unremarkable. The following disc levels a re specifically discussed: T12-L1: The disc does not extend beyond the endplate margin. There is mild bilateral facet joint oste oarthritis. There is no neural foraminal stenosis. There is no central canal stenosis. L1-L2: Disc is bulging. There is mild bilateral facet joint osteoarthritis. There is mild bilateral n eural foraminal stenosis. There is mild central canal stenosis. L2-L3: Disc is bulging. There is mild to moderate right and severe left facet joint osteoarthritis. T here is mild bilateral neural foraminal stenosis. There is mild central canal stenosis. L3-L4: Disc is mildly bulging. There is mild bilateral facet joint osteoarthritis. There is mild bila teral neural foraminal stenosis. There is mild central canal stenosis. L4-L5: Disc is mildly bulging with left foraminal zone annular fissure. There is mild left and modera te right facet joint osteoarthritis. There is moderate bilateral neural foraminal stenosis. There is mild central canal stenosis. L5-S1: Disc is mildly bulging. There is moderate bilateral facet joint osteoarthritis. There is mild bilateral neural foraminal stenosis. There is no central canal stenosis. IMPRESSION: 1. Mild lumbar levoscoliosis with minimal progression of moderate lumbar spondylosis Reviewed, dictated and finalized at location A. IMPRESSION: 1. Mild lumbar levoscoliosis with minimal progression of moderate lumbar spondy jeronimois
== END ==
PROVIDERS: PCP Emergency Medicine; Visit Provider Neurological Surgery
DX: M54.50 Low back pain, unspecified (principal); M47.816 Spondylosis without myelopathy or radiculopathy, lumbar region; M41.86 Other forms of scoliosis, lumbar region
CPT/HCPCS: 72148

== ENCOUNTER 2022-03-01 10:04 | Outpatient (CLI) | payer SELFPAY ==
--- NOTE | 2022-03-01 | ECG_ITS ---
Measurements Intervals [place] Rate: 52 P: 66 MT: 148 QRS: 73 QRSD: 95 T: 24 QT: 450 QTc: 422 Interpretive Statements SINUS BRADYCARDIA T WAVE ABNORMALITY IN ANTEROLATERAL LEADS- CONSIDER ISCHEMIA ABNORMAL ECG COMPARED TO ECG 09/22/2021 15:03:27 MORE PRONOUNCED T WAVE ABNORMALITY Electronically Signed On 03-01-2022 11:48:56 MANAGER REGIONAL by Osvaldo Reyes D.O.
[2022-03-01 11:17] LABS: Hematocrit 41.4 % (42.0-52.0); Hemoglobin 13.6 g/dL (14.0-18.0); Mean Corpuscular HGB Conc 32.9 g/dl (32-36); Mean Corpuscular Hemoglobin 28.4 pg (26-34); Mean Corpuscular Volume 86.4 fl (80-100); Mean Platelet Volume 9.5 fl (7.4-10.4); Platelet Count Result 174 k/mm3 (150-375); Red Blood Count 4.79 M/mm3 (4.6-6.20); Red Cell Distribution Width 15.1 % (11.5-14.5); White Blood Count 8.1 K/mm3 (4.5-10.0)
[2022-03-01 11:28] LABS: Alanine Aminotransferase 24 U/L (6-50); Albumin Level 4.3 g/dL (3.5-5.1); Alkaline Phosphatase 49 U/L (38-126); Anion Gap 7 mmol/L (8-16); Aspartate Amino Transferase 31 U/L (17-59); Bilirubin,Total 0.6 mg/dL (0.2-1.3); Blood Urea Nitrogen 17 mg/dL (9-20); Calcium 8.8 mg/dL (8.4-10.2); Carbon Dioxide 28 mmol/L (22-30); Chloride 105 mmol/L (98-107); Estimated Glomerular Filt Rate > 60; Glucose 81 mg/dL (65-110); Sodium 140 mmol/L (137-145)
== END 2022-03-01 10:05 | disposition home or self-care (01) ==
PROVIDERS: Visit Provider Orthopaedic Surgery
DX: Z01.812 Encounter for preprocedural laboratory examination (principal); Z01.810 Encounter for preprocedural cardiovascular examination; R00.1 Bradycardia, unspecified
CPT/HCPCS: 36415; 80053; 85027; 93005

== ENCOUNTER 2022-04-19 09:42 | Outpatient (CLI) | payer BC, SELFPAY ==
--- NOTE | 2022-04-19 20:22 | WPDPFTINT ---
PFT Procedure Performed PFT Procedure Performed Spirometry with Pre/Post Bronchodilator Plethysmography (Lung Vol) Diffusing Cap (DLCO) Flow Vol Loop PFT Interpretation DOS: 04/19/2022 REQUESTING: Dr. Miramontes REASON FOR TESTING: Emphysema, smoking PULMONARY FUNCTION TESTS Results are reliable and reproducible. Spirometry: Pre-bronchodilator FEV1 is 3.19 L, 92%, normal. Pre-bronchodilator FVC is 4.59 L, 103% predicted, normal. FEV1/FVC ratio is 70%, normal. After bronchodilator administration there is a 7% increase in FEV1, 3.40 L, 98% predicted, normal. There is a 1% increase in FVC, 4.63 L, 104% predicted, normal. The FEV1/FVC ratio was 74%. Lung volumes: Total lung capacity is 7.24 L, 107% predicted, normal. Residual volume is 2.66 L, 122% predicted, normal. RV/TLC is 37%, normal. Raw 153%, increased. Diffusion: DLCO 22.4, 80% predicted. This is normal. DLCO/VA is 3.69, 86%, normal. Flow volume loop: Normal. IMPRESSION: This study shows normal spirometry without change after bronchodilator, normal lung volumes and normal diffusion. Lack of response to bronchodilator should not preclude use if clinically indicated. Vandana Espinal MD
== END 2022-04-19 09:43 | disposition home or self-care (01) ==
LOC: ANHPFT 09:43
PROVIDERS: PCP Emergency Medicine; Visit Provider Emergency Medicine
DX: J43.2 Centrilobular emphysema (principal)
CPT/HCPCS: 94060; 94726; 94729

== ENCOUNTER → 2022-05-30 12:49 | Outpatient (CLI) | payer BC, SELFPAY ==
--- NOTE | ~2022-05-30 | CT_ITS ---
EXAMINATION: CT lung screening DATE: 05/30/2022 13:02 INDICATION: Tobacco use TECHNIQUE: Computed tomography (CT) of the chest was performed without intravenous contrast. Addition al 3D reconstructions utilizing coronal maximum intensity projection (MIP) were performed. Automated exposure control and iterative reconstruction technique were employed. The dose-length product was 17 1.82 mGy-cm. COMPARISON: 05/26/2021 FINDINGS: Mild emphysema. Again seen are calcified nodules in the bilateral upper lobes, left greater than righ t and calcified left hilar and AP window mediastinal lymph nodes consistent with old granulomatous di sease. Unchanged 3 mm nodule at the posterior right apex. No new or enlarging pulmonary nodules, pneu monia, pulmonary edema or pleural effusion. Heart size is normal. No pericardial effusion. Thoracic a freda is normal in caliber. No pathologically enlarged thoracic lymphadenopathy. Numerous small hepati c and splenic calcifications also consistent with old granulomatous disease. 5 mm stone at an upper p ole calyx of the left kidney. There are bridging osteophytes at multiple levels in the spine, consist ent with diffuse idiopathic skeletal hyperostosis (DISH). IMPRESSION: 1. Lung-RADS category 2: Benign appearance or behavior. Continue annual screening with noncontrast lo w-dose chest CT in 12 months. Reviewed, dictated and finalized at location A. IMPRESSION: 1. Lung-RADS category 2: Benign appearance or behavior. Continue annual screeni ng with noncontrast low-dose chest CT in 12 months.
== END ==
PROVIDERS: PCP Emergency Medicine; Visit Provider Emergency Medicine
DX: Z12.2 Encounter for screening for malignant neoplasm of respiratory organs (principal); Z87.891 Personal history of nicotine dependence
CPT/HCPCS: 71271

== ENCOUNTER 2022-08-08 08:04 | Outpatient (CLI) | payer BC, SELFPAY ==
--- NOTE | ~2022-08-08 | MR_ITS ---
EXAMINATION: MR cervical spine wo con DATE: 08/08/2022 09:00 INDICATION: Neck pain. TECHNIQUE: Magnetic resonance imaging (MRI) of the cervical spine was performed without intravenous c ontrast. Sequences included sagittal T2-weighted FSE, sagittal T2-weighted FS FSE, sagittal T1-weight ed FSE, axial MERGE, and axial T2-weighted FSE. COMPARISON: None FINDINGS: There is mild kyphosis of cervical spine. There is 4 degrees dextrocurvature of cervicothor acic spine. Vertebral body heights are normal. There is moderately decreased disc height at C5-C6, mi ldly decreased disc height at C6-C7, and moderately decreased disc height at C7-T1. The spinal cord s ignal intensity is normal. The following disc levels are specifically discussed: C2-C3: The disc does not extend beyond the endplate margin. There is mild left uncovertebral joint os teoarthritis. There is mild bilateral facet joint osteoarthritis. There is mild left neural foraminal stenosis. There is no central canal stenosis. C3-C4: The disc does not extend beyond the endplate margin. There is moderate left uncovertebral join t osteoarthritis. There is moderate right and severe left facet joint osteoarthritis. There is mild l eft neural foraminal stenosis. There is no central canal stenosis. C4-C5: The disc does not extend beyond the endplate margin. There is mild right and moderate left unc overtebral joint osteoarthritis. There is moderate right and severe left facet joint osteoarthritis. There is mild left neural foraminal stenosis. There is no central canal stenosis. C5-C6: The disc is bulging. There is moderate bilateral uncovertebral joint osteoarthritis. There is moderate bilateral facet joint osteoarthritis. There is mild bilateral neural foraminal stenosis. The re is mild central canal stenosis. C6-C7: The disc is bulging. There is mild bilateral uncovertebral joint osteoarthritis. There is jake re left facet joint osteoarthritis. There is mild left neural foraminal stenosis. There is mild centr al canal stenosis. C7-T1: The disc is bulging. There is moderate severe left uncovertebral joint osteoarthritis. There i s mild right and severe left facet joint osteoarthritis. There is mild right and moderate left neural foraminal stenosis. There is mild central canal stenosis. IMPRESSION: 1. Moderate cervical spondylosis. Reviewed, dictated and finalized at location A.
--- NOTE | ~2022-08-08 | MR_ITS ---
EXAMINATION: MR thoracic spine wo con DATE: 08/08/2022 09:05 INDICATION: Chronic back pain. TECHNIQUE: Magnetic resonance imaging (MRI) of the thoracic spine was performed without intravenous c ontrast. Sagittal localizer T1-weighted FSE of the cervical spine was obtained. Thoracic spine sequen tani included sagittal T2-weighted FSE, sagittal T1-weighted FSE, sagittal T2-weighted FS FSE, and axi al T2-weighted FSE. COMPARISON: None FINDINGS: There is 8 degrees levocurvature of upper thoracic spine. There is 6 degrees dextrocurvatur e of mid thoracic spine. Vertebral body heights are normal. There are Schmorl's nodes at a few levels in lower thoracic spine. There is mildly decreased disc height from T3-T4 through T7-T8. At T4-T5, t here is a left central protrusion with mild central canal stenosis. At T5-T6, there is a left central extrusion with mild central canal stenosis. There is multilevel mild facet joint osteoarthritis. No neural foraminal stenosis. There is syringohydromyelia from T2 to T9 with maximum diameter of 1 mm. IMPRESSION: 1. Mild thoracic spondylosis. 2. 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 Reviewed, dictated and finalized at location A.
== END 2022-08-08 08:05 ==
PROVIDERS: PCP Emergency Medicine
DX: M48.10 Ankylosing hyperostosis [Forestier], site unspecified (principal); G89.29 Other chronic pain; M47.894 Other spondylosis, thoracic region; M47.892 Other spondylosis, cervical region
CPT/HCPCS: 72141; 72146

== ENCOUNTER 2022-10-27 12:08 | Outpatient (CLI) | payer BC, SELFPAY ==
--- NOTE | ~2022-10-27 | MR_ITS ---
EXAMINATION: MR shoulder RT wo con DATE: 10/27/2022 12:50 INDICATION: Right shoulder pain TECHNIQUE: Magnetic resonance imaging (MRI) of the right shoulder was performed without intravenous c ontrast. Sequences included axial PD-weighted FS FSE, coronal oblique PD-weighted FS FSE, coronal obl ique T2-weighted FS FSE, sagittal PD-weighted FS FSE, and sagittal T1-weighted SE. COMPARISON: Shoulder radiographs dated 06/12/2018 FINDINGS: Coracoacromial arch: The acromion undersurface is curved in morphology (type II). The coracoacromial ligament is normal. M oderate acromioclavicular osteoarthritis with heterotopic ossification along the cephalad joint capsu le and small inferiorly directed osteophytes arising from the lateral head of the clavicle. Rotator cuff: Mild supraspinatus tendinopathy without discrete tear. The infraspinatus and teres minor tendons are normal. Additional mild tendinopathy and a small region of the cephalad lesser tuberosity footplate o f the subscapularis tendon. Normal rotator cuff muscle bulk and signal. Biceps tendon, glenoid labrum and glenohumeral cartilage: Long head of the biceps tendon is normal. Degeneration of the posterosuperior glenoid labrum surround ing a small more well-defined fluid signal intensity tear at the 10:30 position. Glenohumeral cartila ge is normal. Fluid: Physiologic amount of fluid in the glenohumeral joint and biceps tendon sheath. No loose osteochondr al bodies. There is increased fluid signal in the subacromial/subdeltoid bursa consistent with mild b ursitis. Bones: No fracture or pathologic marrow replacing process. Mild cystic and subarticular edema-like signal ch gabriel at the acromioclavicular joint. IMPRESSION: 1. Moderate acromioclavicular osteoarthritis. 2. Degeneration of the posterosuperior glenoid labrum surrounding a small more well-defined linear la bral tear at the 10:30 3. Mild supraspinatus and infraspinatus tendinopathy without tear. 4. Mild subacromial/subdeltoid bursitis. Reviewed, dictated and finalized at location A. IMPRESSION: 1. Moderate acromioclavicular osteoarthritis. 2. Degeneration of the posterosuperior glenoid labrum surrounding a small more well-defined linear labral tear at the 10:30 3. Mild supraspinatus and infraspinatus tendinopathy without tear. 4. Mild subacromial/subdeltoid bursitis.
== END 2022-10-27 12:09 ==
PROVIDERS: PCP Orthopaedic Surgery; Visit Provider Orthopaedic Surgery
DX: M19.111 Post-traumatic osteoarthritis, right shoulder (principal); M67.813 Other specified disorders of tendon, right shoulder; M75.51 Bursitis of right shoulder
CPT/HCPCS: 73221

== ENCOUNTER 2022-11-01 09:55 | Outpatient (CLI) | payer BC, SELFPAY | END 2022-11-01 09:56 | disposition home or self-care (01) | LOC: ANHAUDIO 09:56 | PROVIDERS: PCP Orthopaedic Surgery; Visit Provider Emergency Medicine | DX: H93.13 Tinnitus, bilateral (principal); H90.3 Sensorineural hearing loss, bilateral | CPT/HCPCS: 92557; 92567 ==

== ENCOUNTER → 2022-11-15 13:21 | Outpatient (CLI) | payer BC, SELFPAY ==
--- NOTE | ~2022-11-15 | MR_ITS ---
MRI of the right shoulder Technique: Axial proton-density fat-sat images, coronal proton density fat-sat and T2 fat-sat images, and sagittal T1-weighted and T2 fat-sat images were acquired. Clinical History: Pain Findings: Anterior and posterior cruciate ligaments are intact. Medial collateral ligament and the la teral collateral ligament complex are intact. Popliteus tendon is intact. Medial and lateral menisci are intact, without evidence of tear. There is mild intrasubstance degener ative signal in the posterior horns of the menisci, especially medial meniscus. Articular cartilage is well preserved throughout the knee. Bone marrow signals are unremarkable. Extensor mechanism is intact. No significant joint effusion. Minimal Ch's cyst present. Impression: Minimal Ch's cyst. No ligamentous injury or meniscal tear identified. Reviewed, dictated and finalized at [facility]. Impression: Minimal Ch's cyst. No ligamentous injury or meniscal tear identified.
== END ==
PROVIDERS: PCP Orthopaedic Surgery; Visit Provider Orthopaedic Surgery
DX: M25.561 Pain in right knee (principal)
CPT/HCPCS: 73721

== ENCOUNTER → 2022-12-16 12:49 | Outpatient (CLI) | payer BC, SELFPAY ==
--- NOTE | ~2022-12-16 | MR_ITS ---
MRI of the right hip Clinical history: Pain Technique: Coronal T1-weighted, T2-weighted, and proton-density fat-sat images, and axial T1-weighted and proton-density fat-sat images were acquired through the pelvis. Coronal T2-weighted images and c oronal, axial, and sagittal proton-density fat-sat images were acquired through the right hip. Findings: There is no fracture, avascular necrosis, transient osteoporosis of either hip. There is mo derate degenerative change of the right hip joint, and mild degenerative change of the left hip joint . No joint effusion evident. Probable degenerative tearing of the anterior and superolateral right ac etabular labrum. Visualized musculature of the pelvis and right hip is unremarkable. No muscle atrophy or edema. Visua lized tendons are intact. No bursitis. No soft tissue mass or fluid collection. IMPRESSION: Moderate right hip joint degenerative change with probable degenerative tearing of the anterior and s uperolateral aspects of the acetabular labrum. Mild left hip joint degenerative change. Reviewed, dictated and finalized at location . IMPRESSION: Moderate right hip joint degenerative change with probable degenerative tearing of the anterior and superolateral aspects of the acetabular labrum. Mild left hip joint degenerative change.
== END ==
PROVIDERS: Visit Provider Orthopaedic Surgery
DX: M16.11 Unilateral primary osteoarthritis, right hip (principal)
CPT/HCPCS: 73721

== ENCOUNTER → 2023-01-10 13:14 | Outpatient (CLI) | payer BC, SELFPAY ==
--- NOTE | ~2023-01-10 | MR_ITS ---
MRI of the thoracic spine Clinical History: Disorder intervertebral disc of the thoracic spine Technique: Axial T2-weighted and gradient images, and sagittal T1-weighted, T2-weighted, and STIR ilia ges were acquired. Findings: There is no fracture or subluxation of the thoracic spine. Vertebral bodies maintain normal height and alignment. No suspicious bone marrow signal abnormality seen. There is mild degenerative disc narrowing throughout the mid to lower thoracic spine. No significant disc bulge or herniation evident at any thoracic level. No spinal canal stenosis, cord compression, or epidural mass identified. Paravertebral soft tissues are unremarkable. Impression: Mild degenerative disc changes in the thoracic spine. No disc bulge or herniation. No spinal canal st enosis or cord compression. Reviewed, dictated and finalized at location . E MAKER Impression: Mild degenerative disc changes in the thoracic spine. No disc bulge or herniati on. No spinal canal stenosis or cord compression.
== END ==
PROVIDERS: PCP Orthopaedic Surgery; Visit Provider Orthopaedic Surgery
DX: M51.24 Other intervertebral disc displacement, thoracic region (principal)
CPT/HCPCS: 72146